=== PATIENT | female | born 1985 | race Caucasian/White ===

== ENCOUNTER 2017-02-22 18:01 | Emergency (ER) | payer MEDICAID, OTHER ==
[2017-02-22] MEDS ORDERED: HYDROCODONE/ACETAMINOPHEN 5-325 MG TABLET PO ONE (18:24)
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
--- NOTE | 2017-02-22 19:31 | RADIOLOGY REPORT (SQ) ---
EXAM DESCRIPTION: ANKLE LEFT COMPLETE COMPLETED DATE/TIME: 02/22/2017 7:05 pm REASON FOR STUDY: injury COMPARISON: None. NUMBER OF VIEWS: Three views. TECHNIQUE: AP, lateral, and oblique radiographic images acquired of the left ankle. LIMITATIONS: None. FINDINGS: MINERALIZATION: Normal. BONES: No acute fracture or dislocation. No worrisome bone lesions. JOINTS: No effusions. SOFT TISSUES: Mild diffuse soft tissue swelling. OTHER: No other significant finding. IMPRESSION: SOFT TISSUE SWELLING WITHOUT FRACTURE IDENTIFIED. TECHNICAL DOCUMENTATION: JOB ID: [id number] [employer]- All Rights Reserved
[2017-02-22 19:46] VITALS: BP 96/50
--- NOTE | 2017-02-22 19:58 | ER Document Report ---
Doctor's Note Notes: 02/22/17 19:57 zak wrap applied to left ankle by DIRECTOR OF ACCREDITATION. Neurovascular and sensation intact prior to and post application. Alignment good.
== END 2017-02-22 19:46 | disposition home or self-care (01) ==
LOC: ER 18:01
DX: S93.492A Sprain of other ligament of left ankle, initial encounter (principal); W01.0XXA Fall on same level from slipping, tripping and stumbling without subsequent striking against object, initial encounter; Y93.K1 Activity, walking an animal; F17.210 Nicotine dependence, cigarettes, uncomplicated
CPT/HCPCS: 99283

== ENCOUNTER 2017-04-06 14:18 | Emergency (ER) | payer OTHER, MEDICAID ==
[2017-04-06 14:28] VITALS: BP 111/62
[2017-04-06] MEDS ORDERED: ACETAMINOPHEN 325 MG TABLET PO ONE (14:38)
--- NOTE | 2017-04-06 14:41 | ER Document Report ---
HPI - HPI Patient complains to provider of: arm injury Onset: Just prior to arrival Onset/Duration: Sudden Quality of pain: Sharp Pain Level: 5 Context: Pt states that she slipped and fell hitting her right forearm on a bunk. Patient complains of distal forearm pain. Associated Symptoms: Other - r wrist pain Exacerbated by: Movement Relieved by: Denies Similar symptoms previously: No Recently seen / treated by doctor: No - ROS ROS below otherwise negative: Yes Systems Reviewed and Negative: Yes All other systems reviewed and negative - CONSTITUTIONAL Constitutional: DENIES: Fever, Chills - GASTROINTESTINAL Gastrointestinal: DENIES: Nausea - REPRODUCTIVE Reproductive: DENIES: : - MUSCULOSKELETAL Musculoskeletal: REPORTS: Extremity pain, Swelling - DERM Skin Color: Ecchymosis Skin Problems: None Past Medical History - General Information source: Patient - Social History Smoking Status: Current Every Day Smoker Frequency of alcohol use: None Drug Abuse: None Family History: Reviewed & Not Pertinent - Past Medical History Cardiac Medical History: Denies: Hx Heart Attack, Hx Hypertension Pulmonary Medical History: Denies: Hx Asthma, Hx Bronchitis, Hx COPD, Hx Pneumonia Neurological Medical History: Reports: Hx Seizures Renal/ Medical History: Denies: Hx Peritoneal Dialysis Musculoskeltal Medical History: Denies Hx Arthritis Psychiatric Medical History: Reports: Hx Anxiety, Hx Depression Infectious Medical History: Reports: Other - meningitits, epidural abscess Past Surgical History: Reports: Hx Appendectomy, Hx Cardiac Surgery - Ablation for SVT, Hx Section, Hx Neurologic Surgery - Immunizations Hx Diphtheria, Pertussis, Tetanus Vaccination: No Vertical Provider Document - CONSTITUTIONAL Agree With Documented VS: Yes Exam Limitations: No Limitations General Appearance: WD/WN - INFECTION CONTROL TRAVEL OUTSIDE OF THE [place] IN LAST 30 DAYS: No - HEENT HEENT: Atraumatic, Normocephalic - NECK Neck: Normal Inspection - RESPIRATORY Respiratory: No Respiratory Distress O2 Sat by Pulse Oximetry: 97 - CARDIOVASCULAR Pulses: Normal: Radial - MUSCULOSKELETAL/EXTREMETIES Musculoskeletal/Extremeties: MAEW, Tender - Numbness to distal third of the right forearm along the ulnar aspect with overlying edema and ecchymosis - NEURO Level of Consciousness: Awake, Alert, Appropriate Motor/Sensory: No Motor Deficit - DERM Integumentary: Warm, Dry, No Rash Course - Vital Signs Vital signs: Temp Pulse Resp BP Pulse Ox 98.7 F 71 18 111/62 97 04/06/17 14:27 04/06/17 14:27 04/06/17 14:27 04/06/17 14:27 04/06/17 14:27 - Diagnostic Test Radiology reviewed: Pending, Image reviewed Discharge - Discharge Clinical Impression: Forearm contusion Qualifiers: Encounter type: initial encounter Laterality: right Qualified Code(s): S50.11XA - Contusion of right forearm, initial encounter Condition: Stable Disposition: HOME, SELF-CARE Instructions: Contusion ([facility]), Ice & Elevation ([facility]), Acetaminophen Additional Instructions: Return immediately for any new or worsening symptoms Followup with orthopedic doctor for any continued pain or problems Prescriptions: Acetaminophen [Non-Aspirin Pain Relief] 1,000 mg PO Q6 PRN #20 tablet PRN Reason: Referrals: [facility] [Provider Group] - Follow up as needed
--- NOTE | 2017-04-06 15:07 | RADIOLOGY REPORT (SQ) ---
EXAM DESCRIPTION: FOREARM RIGHT COMPLETED DATE/TIME: 04/06/2017 2:52 pm REASON FOR STUDY: fall, arm injury COMPARISON: None. NUMBER OF VIEWS: Two views. TECHNIQUE: Two radiographic images acquired of the right forearm, including elbow and wrist in at le ast one projection. LIMITATIONS: None. FINDINGS: MINERALIZATION: Normal. BONES: No acute fracture. No worrisome bone lesions. SOFT TISSUES: No obvious swelling or foreign body. OTHER: No other significant finding. IMPRESSION: NEGATIVE STUDY OF THE RIGHT FOREARM. NO RADIOGRAPHIC EVIDENCE OF ACUTE INJURY. TECHNICAL DOCUMENTATION: JOB ID: [id number] [employer]- All Rights Reserved
== END 2017-04-06 14:55 | disposition home or self-care (01) ==
LOC: ER 14:18
DX: S50.11XA Contusion of right forearm, initial encounter (principal); W01.190A Fall on same level from slipping, tripping and stumbling with subsequent striking against furniture, initial encounter; Y92.143 Cell of prison as the place of occurrence of the external cause; R20.0 Anesthesia of skin; F17.200 Nicotine dependence, unspecified, uncomplicated
CPT/HCPCS: 99283

== ENCOUNTER 2017-08-25 04:36 | Emergency (ER) | payer MEDICAID ==
--- NOTE | 2017-08-25 05:17 | ER Document Report ---
HPI - HPI Patient complains to provider of: swelling to jaw Onset: This morning - woke up with the swelling Quality of pain: Throbbing Pain Level: 5 Context: 32-year-old female cracked second molar lower right several days ago woke up early this morning with swelling to her lower jaw. Hurts to move or open her mouth. She is crying and will not let me examine inside her mouth due to pain. No difficulty swallowing, no drooling. Associated Symptoms: None Exacerbated by: Movement Relieved by: Denies Similar symptoms previously: No Recently seen / treated by doctor: No - ROS ROS below otherwise negative: Yes Systems Reviewed and Negative: Yes All other systems reviewed and negative - REPRODUCTIVE Reproductive: DENIES: : Past Medical History - General Information source: Patient - Social History Smoking Status: Current Every Day Smoker Frequency of alcohol use: None Drug Abuse: None Lives with: Spouse/Significant other Family History: Reviewed & Not Pertinent - Medical History Medical History: Negative Neurological Medical History: Reports: Hx Seizures Renal/ Medical History: Denies: Hx Peritoneal Dialysis Psychiatric Medical History: Reports: Hx Anxiety, Hx Depression Past Surgical History: Reports: Hx Appendectomy, Hx Cardiac Surgery - Ablation for SVT, Hx Section, Hx Neurologic Surgery - Immunizations Hx Diphtheria, Pertussis, Tetanus Vaccination: No Vertical Provider Document - CONSTITUTIONAL Agree With Documented VS: Yes Exam Limitations: No Limitations General Appearance: Mild Distress - INFECTION CONTROL TRAVEL OUTSIDE OF THE [place] IN LAST 30 DAYS: No - HEENT HEENT: Normocephalic Mouth Diagram: 1 - tender, gingival swelling, also has right cheek and sub mandibular swelling which is not tender. Notes: does open mouth for re exam, 1st molar lower left decayed to pulp, gingival tenderness and swelling, no swelling or tenderness under her tongue - NECK Neck: Supple. negative: Lymphadenopathy-Left, Lymphadenopathy-Right - RESPIRATORY Respiratory: Breath Sounds Normal, No Respiratory Distress O2 Sat by Pulse Oximetry: 95 - CARDIOVASCULAR Cardiovascular: Regular Rate, Regular Rhythm - MUSCULOSKELETAL/EXTREMETIES Musculoskeletal/Extremeties: MAFRANCISCO J CENTENO - NEURO Level of Consciousness: Awake, Alert, Appropriate, Agitated Course - Vital Signs Vital signs: Temp Pulse Resp BP Pulse Ox 98.7 F 90 20 128/70 H 95 08/25/17 04:48 08/25/17 04:48 08/25/17 04:48 08/25/17 04:48 08/25/17 04:48 Discharge - Discharge Clinical Impression: Dental abscess, Jaw swelling Condition: Good Disposition: HOME, SELF-CARE Instructions: Clindamycin (OM), Dentist, Dental Infection or Abscess ([facility]), Steroid Medication, Toradol Injection ([facility]), Warm Packs ([facility]) Additional Instructions: see the dentist next week heat to jaw take the antibiotics as prescribed to er if worse Prescriptions: Ibuprofen [Motrin 800 mg Tablet] 800 mg PO Q8HP PRN #30 tablet PRN Reason: Clindamycin HCl [Cleocin 150 mg Capsule] 300 mg PO TID #42 capsule Referrals: TASHA PEOPLES MD [Primary Care Provider] - Follow up as needed
[2017-08-25] MEDS ORDERED: CLINDAMYCIN 600 MG/D5W RTU 600 MG/50 ML RTUPB IV ONE (05:21)
[2017-08-25] MEDS ORDERED: NORMAL SALINE 1000 ML 1,000 ML IV ONE (05:21)
[2017-08-25] MEDS ORDERED: DEXAMETHASONE SOD PHOS INJ 10 MG/1 ML VIAL IV ONE (05:21)
[2017-08-25] MEDS ORDERED: ACETAMINOPHEN SUSP 160 MG/5 ML ORAL SYRING PO ONE (05:22)
[2017-08-25] MEDS ORDERED: KETOROLAC TROMETHAMINE INJ/PF 30 MG/1 ML SDV IV ONE (05:25)
[2017-08-25] MEDS ORDERED: MORPHINE SULFATE 10 MG/ML INJ IV ONE (06:31)
[2017-08-25 08:40] VITALS: BP 92/58
== END 2017-08-25 08:40 | disposition home or self-care (01) ==
LOC: ER 04:36
DX: K04.7 Periapical abscess without sinus (principal); F17.200 Nicotine dependence, unspecified, uncomplicated
CPT/HCPCS: 99283; 96375; 96365; S0077; J1885; J2270; J7030; J1100

== ENCOUNTER 2017-11-30 22:10 | Emergency (ER) | payer MEDICAID ==
[2017-11-30] MEDS ORDERED: NORMAL SALINE 1000 ML 1,000 ML IV ONE (22:48)
[2017-11-30 22:53] LABS: AMORPHOUS SEDIMENT,URINE TRACE /HPF; APPEARANCE,URINE SLIGHTLY-CLOUDY; BILIRUBIN,URINE NEGATIVE (NEGATIVE); COLOR,URINE YELLOW; GLUCOSE, URINE NEGATIVE (NEGATIVE); KETONES,URINE NEGATIVE (NEGATIVE); LEUKOCYTE ESTERASE,URINE TRACE (NEGATIVE); NITRITE,URINE NEGATIVE (NEGATIVE); PROTEIN,URINE NEGATIVE (NEGATIVE); URINE SPECIFIC GRAVITY 1.006; UROBILINOGEN,URINE NEGATIVE mg/dL (<2.0)
[2017-11-30 23:26] LABS: HEMATOCRIT 33.3 % (36.0-47.0); HEMOGLOBIN 11.2 g/dL (12.0-15.5); MEAN CORPUSCULAR HEMOGLOBIN 26.4 pg (27.0-33.4); MEAN CORPUSCULAR HGB CONC 33.8 g/dL (32.0-36.0); MEAN CORPUSCULAR VOLUME 78 fl (80-97); PLATELET COUNT 118 10^3/uL (150-450); RED BLOOD COUNT 4.26 10^6/uL (3.72-5.28); RED CELL DISTRIBUTION WIDTH 15.4 % (11.5-14.0); WHITE BLOOD COUNT 6.7 10^3/uL (4.0-10.5)
--- NOTE | 2017-11-30 23:28 | ER Document Report ---
ED General - General Chief Complaint: Vag Bleeding, +preg <12wks Stated Complaint: VAGINAL BLEEDING/CRAMPING Time Seen by Provider: 11/30/17 22:39 Mode of Arrival: Ambulatory Information source: Patient, Parent, Relative TRAVEL OUTSIDE OF THE [place] IN LAST 30 DAYS: No - HPI Patient complains to provider of: Pelvic cramping with brownish vaginal discharge Onset: Just prior to arrival Quality of pain: Cramping Severity: Mild Associated symptoms: Body/muscle aches Exacerbated by: Movement Relieved by: Denies Similar symptoms previously: No Recently seen / treated by doctor: Yes - Patient diagnosed with flu yesterday and started on Tamiflu Notes: 32-year-old female 2 para 1000. Patient states her child 8 years ago at 1 month of age due to SIDS. 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 Patient is on Lamictal gabapentin her last seizure was last year.Patient states she is 12-1/2 weeks . She did have an ultrasound last Saturday which showed her at 11 week's and 5 days. Patient goes to [facility] as well as [facility] in [place] secondary to her seizure history. Patient is also on Subutex and Fioricet. She discontinued her Ativan a few days ago.Patient states that she was sleeping and awoke prior to arrival to the emergency department with cramping and scant bleeding. - Related Data Allergies/Adverse Reactions: Sulfa (Sulfonamide Antibiotics) Allergy (Severe, Verified 08/25/17 04:50) RASH, HIVES latex [Latex] Allergy (Intermediate, Verified 08/25/17 04:50) RASH, SWELLING AT AREA ketorolac tromethamine [From Toradol] Adverse Reaction (Intermediate, Verified 08/25/17 04:50) AGITATED meperidine HCl [From Demerol] Adverse Reaction (Intermediate, Verified 08/25/17 04:50) AGITATED Past Medical History - General Information source: Patient, Parent, [facility] Records - Social History Smoking Status: Former Smoker Frequency of alcohol use: None Lives with: Family Family History: Reviewed & Not Pertinent, Other - sister had placental abruption Patient has suicidal ideation: No Patient has homicidal ideation: No - Past Medical History Cardiac Medical History: Reports: None Denies: Hx Heart Attack, Hx Hypertension Pulmonary Medical History: Reports: None Denies: Hx Asthma, Hx Bronchitis, Hx COPD, Hx Pneumonia EENT Medical History: Reports: None Neurological Medical History: Reports: Hx Seizures Endocrine Medical History: Reports: None Renal/ Medical History: Reports: None. Denies: Hx Peritoneal Dialysis Malignancy Medical History: Reports: None GI Medical History: Reports: None Musculoskeltal Medical History: Reports None, Denies Hx Arthritis Psychiatric Medical History: Reports: Hx Anxiety, Hx Depression Traumatic Medical History: Reports: None Past Surgical History: Reports: Hx Appendectomy, Hx Cardiac Surgery - Ablation for SVT, Hx Section, Hx Neurologic Surgery - Immunizations Hx Diphtheria, Pertussis, Tetanus Vaccination: No Review of Systems - Review of Systems Constitutional: See HPI EENT: No symptoms reported Cardiovascular: No symptoms reported Respiratory: No symptoms reported Gastrointestinal: No symptoms reported Genitourinary: No symptoms reported Female Genitourinary: See HPI Skin: No symptoms reported Hematologic/Lymphatic: No symptoms reported Neurological/Psychological: No symptoms reported Physical Exam - Vital signs Vitals: Temp Pulse Resp BP Pulse Ox 98.2 F 103 H 22 H 87/50 L 100 11/30/17 22:27 11/30/17 22:27 11/30/17 22:27 11/30/17 22:27 11/30/17 22:27 Interpretation: Normal - Notes Notes: PHYSICAL EXAMINATION: GENERAL: Well-appearing, well-nourished and in no acute distress. Anxious and teary-eyed. HEAD: Atraumatic, normocephalic. EYES: Pupils equal round and reactive to light, extraocular movements intact, conjunctiva are normal. ENT: Nares patent, oropharynx clear without exudates. Moist mucous membranes. NECK: Normal range of motion, supple without lymphadenopathy. LUNGS: Breath sounds clear to auscultation bilaterally and equal. No wheezes rales or rhonchi. HEART: Regular rate and rhythm without murmurs ABDOMEN: Soft, nontender, nondistended abdomen. No guarding, no rebound. No masses appreciated. Female : deferred Musculoskeletal: Normal range of motion, no pitting or edema. No cyanosis. NEUROLOGICAL: Cranial nerves grossly intact. Normal speech. Normal sensory, motor exams. PSYCH: Normal mood, normal affect. SKIN: Warm, dry, normal turgor, no rashes or lesions noted. Course - Re-evaluation Re-evalutation: 12/01/17 00:20 U/S tech stated she did not see heart beat. Awaiting official reading. Called to radiology and Dr. Arango to read. Called chemistry and awaiting HCG dilution. 12/01/17 00:[address] Kellie García. He states that the patient follow-up on Saturday.I did go in and tell the patient including her parents and significant other the results of the ultrasound. I told her to return to the emergency department if she has high fevers, increased abdominal pain, vaginal bleeding, fainting or any other concerns. 12/01/17 00:44 Labs- All tests 24 hr 11/30/17 11/30/17 11/30/17 22:30 23:03 23:03 WBC 6.7 RBC 4.26 Hgb 11.2 L Hct 33.3 L MCV 78 L MCH 26.4 L MCHC 33.8 RDW 15.4 H Plt Count 118 L Total Counted 100 Seg Neutrophils % Not Reportable Seg Neuts % (Manual) 75 Band Neutrophils % 23 H Lymphocytes % Not Reportable Lymphocytes % (Manual) 1 L Monocytes % Not Reportable Monocytes % (Manual) 1 L Eosinophils % Not Reportable Eosinophils % (Manual) 0 Basophils % Not Reportable Basophils % (Manual) 0 Absolute Neutrophils Not Reportable Abs Neuts (Manual) 6.6 Absolute Lymphocytes Not Reportable Abs Lymphs (Manual) 0.1 L Absolute Monocytes Not Reportable Abs Monocytes (Manual) 0.1 Absolute Eosinophils Not Reportable Absolute Eos (Manual) 0.0 Absolute Basophils Not Reportable Abs Basophils (Manual) 0.0 Toxic Granulation 1+ Toxic Vacuolation PRESENT Dohle Bodies PRESENT Large Platelets PRESENT Platelet Comment DECREASED Polychromasia SLIGHT Hypochromasia SLIGHT Anisocytosis SLIGHT Sodium 132.4 L Potassium 3.7 Chloride 96 L Carbon Dioxide 26 Anion Gap 10 BUN 19 Creatinine 0.71 Est GFR ( Amer) > 60 Est GFR (Non-Af Amer) > 60 Glucose 111 H Calcium 8.4 Total Bilirubin 0.3 Direct Bilirubin 0.1 Neonat Total Bilirubin Not Reportable Neonat Direct Bilirubin Not Reportable Neonat Indirect Bili Not Reportable AST 46 H ALT 44 Alkaline Phosphatase 76 Total Protein 6.6 Albumin 3.6 Beta HCG, Quant 45065.00 H Total Beta HCG POSITIVE Urine Color YELLOW Urine Appearance SLIGHTLY-CLOUDY Urine pH 8.0 Ur Specific [place] 1.006 Urine Protein NEGATIVE Urine Glucose (UA) NEGATIVE Urine Ketones NEGATIVE Urine Blood LARGE H Urine Nitrite NEGATIVE Urine Bilirubin NEGATIVE Urine Urobilinogen NEGATIVE Ur Leukocyte Esterase TRACE H Urine WBC (Auto) 23 Urine RBC (Auto) 6 Urine Bacteria (Auto) 3+ Squamous Epi Cells Auto 7 Amorphous Sediment Auto TRACE Urine Mucus (Auto) RARE Urine Ascorbic Acid NEGATIVE Blood Type Rhogam Indicated 11/30/17 23:03 WBC RBC Hgb Hct MCV MCH MCHC RDW Plt Count Total Counted Seg Neutrophils % Seg Neuts % (Manual) Band Neutrophils % Lymphocytes % Lymphocytes % (Manual) Monocytes % Monocytes % (Manual) Eosinophils % Eosinophils % (Manual) Basophils % Basophils % (Manual) Absolute Neutrophils Abs Neuts (Manual) Absolute Lymphocytes Abs Lymphs (Manual) Absolute Monocytes Abs Monocytes (Manual) Absolute Eosinophils Absolute Eos (Manual) Absolute Basophils Abs Basophils (Manual) Toxic Granulation Toxic Vacuolation Dohle Bodies Large Platelets Platelet Comment Polychromasia Hypochromasia Anisocytosis Sodium Potassium Chloride Carbon Dioxide Anion Gap BUN Creatinine Est GFR ( Amer) Est GFR (Non-Af Amer) Glucose Calcium Total Bilirubin Direct Bilirubin Neonat Total Bilirubin Neonat Direct Bilirubin Neonat Indirect Bili AST ALT Alkaline Phosphatase Total Protein Albumin Beta HCG, Quant Total Beta HCG Urine Color Urine Appearance Urine pH Ur Specific [place] Urine Protein Urine Glucose (UA) Urine Ketones Urine Blood Urine Nitrite Urine Bilirubin Urine Urobilinogen Ur Leukocyte Esterase Urine WBC (Auto) Urine RBC (Auto) Urine Bacteria (Auto) Squamous Epi Cells Auto Amorphous Sediment Auto Urine Mucus (Auto) Urine Ascorbic Acid Blood Type A POSITIVE Rhogam Indicated RHOGAM NOT INDICATED Transvaginal US 11/30/17 22:40 IMPRESSION: demise pattern. Serial laboratory/sonographic confirmation advised, as clinically warranted. - Vital Signs Vital signs: Temp Pulse Resp BP Pulse Ox 98.1 F 73 18 102/50 L 100 12/01/17 00:06 12/01/17 00:06 12/01/17 00:06 12/01/17 00:06 12/01/17 00:06 - Laboratory Result Diagrams: 11/30/17 23:03 11/30/17 23:03 Laboratory results interpreted by me: 03/03/18 03/03/18 03/03/18 22:30 23:03 23:03 Hgb 11.2 L Hct 33.3 L MCV 78 L MCH 26.4 L RDW 15.4 H Plt Count 118 L Band Neutrophils % 23 H Lymphocytes % (Manual) 1 L Monocytes % (Manual) 1 L Abs Lymphs (Manual) 0.1 L Sodium 132.4 L Chloride 96 L Glucose 111 H AST 46 H Beta HCG, Quant 05638.00 H Urine Blood LARGE H Ur Leukocyte Esterase TRACE H Discharge - Discharge Clinical Impression: Intrauterine before 20 weeks of gestation Condition: Stable Disposition: HOME, SELF-CARE Additional Instructions: Follow up with your physician Saturday for further care or return to the ED IMMEDIATELY if symptoms worsen or new concerns occur including but not limited to increased abdominal pain, vomiting, increased vaginal bleeding, fainting. Referrals: KELLIE GARCÍA MD [[facility]] - Follow up tomorrow (Call your OB office in am on Saturday for follow up)
[2017-11-30 23:32] LABS: ALANINE AMINOTRANSFERASE 44 U/L (9-52); ALBUMIN 3.6 g/dL (3.5-5.0); ALKALINE PHOSPHATASE 76 U/L (38-126); ANION GAP 10 (5-19); ASPARTATE AMINO TRANSFERASE 46 U/L (14-36); BILIRUBIN,DIRECT 0.1 mg/dL (0.0-0.4); BILIRUBIN,TOTAL 0.3 mg/dL (0.2-1.3); BLOOD UREA NITROGEN 19 mg/dL (7-20); CALCIUM 8.4 mg/dL (8.4-10.2); CARBON DIOXIDE 26 mmol/L (22-30); CHLORIDE 96 mmol/L (98-107); GLUCOSE 111 mg/dL (75-110); POTASSIUM 3.7 mmol/L (3.6-5.0); SODIUM 132.4 mmol/L (137-145); TOTAL PROTEIN 6.6 g/dL (6.3-8.2)
[2017-11-30 23:47] LABS: ABSOLUTE LYMPHOCYTES# (MANUAL) 0.1 10^3/uL (0.5-4.7); ABSOLUTE MONOCYTES # (MANUAL) 0.1 10^3/uL (0.1-1.4); ABSOLUTE NEUTROPHILS# (MANUAL) 6.6 10^3/uL (1.7-8.2); BASOPHILS % (MANUAL) 0 % (0-2); EOSINOPHILS % (MANUAL) 0 % (0-6); LYMPHOCYTES % (MANUAL) 1 % (13-45); MONOCYTES % (MANUAL) 1 % (3-13); SEGMENTED NEUTROPHILS % (MAN) 75 % (42-78); TOTAL CELLS COUNTED 100
[2017-11-30 23:49] LABS: PLATELET COMMENT DECREASED; TOXIC GRANULATION 1+; TOXIC VACUOLATION PRESENT
[2017-11-30 23:53] LABS: PLATELET LARGE PRESENT
[2017-11-30 23:54] LABS: ANISOCYTOSIS SLIGHT; HYPOCHROMASIA SLIGHT; POLYCHROMASIA SLIGHT
[2017-11-30 23:55] LABS: BAND NEUTROPHILS % (MANUAL) 23 % (3-5)
[2017-12-01] MEDS ORDERED: NORMAL SALINE 1000 ML 1,000 ML IV ONE (00:20)
--- NOTE | 2017-12-01 00:28 | RADIOLOGY REPORT (SQ) ---
EXAM DESCRIPTION: U/S OB TRANSVAG W/DOPPLER CLINICAL HISTORY: 32 years, Female, vag bleeding COMPARISON: None. TECHNIQUE: Transvaginal. LIMITATIONS: None. FINDINGS: demise pattern includes an intrauterine fetus measuring 5.0-cm in crown-rump length which would correspond with a gestational age of 11w5d if viable. No cardiac activity is identified. No yolk sac discerned. Cervical length is 2.3 cm with funneling. IMPRESSION: demise pattern. Serial laboratory/sonographic confirmation advised, as clinically warranted.
[2017-12-01 00:49] VITALS: BP 123/65
[2017-12-02 14:13] LABS: PATH REVIEW PATHOLOGIST REVIEWED
== END 2017-12-01 00:47 | disposition home or self-care (01) ==
LOC: ER 22:10
DX: O02.1 Missed abortion (principal); M79.1 Myalgia; Z3A.12 12 weeks gestation of pregnancy; Z88.2 Allergy status to sulfonamides; Z91.040 Latex allergy status
CPT/HCPCS: 99284; 86900; 86901; 36415; 87086; 84702; 85025; 87088; 80053; 81001; 87186; 76817; 93976; J7030

== ENCOUNTER 2017-12-02 06:13 | Observation (INO) | payer MEDICAID ==
[2017-12-02] MEDS ORDERED: NORMAL SALINE 1000 ML 1,000 ML IV ONE ×2 (06:21→08:57)
[2017-12-02 06:45] LABS: HEMATOCRIT 26.6 % (36.0-47.0); MEAN CORPUSCULAR HEMOGLOBIN 26.7 pg (27.0-33.4); MEAN CORPUSCULAR HGB CONC 34.2 g/dL (32.0-36.0); MEAN CORPUSCULAR VOLUME 78 fl (80-97); PLATELET COUNT 138 10^3/uL (150-450); RED CELL DISTRIBUTION WIDTH 15.7 % (11.5-14.0); WHITE BLOOD COUNT 6.9 10^3/uL (4.0-10.5)
[2017-12-02] MEDS ORDERED: FENTANYL CITRATE INJ/PF 100 MCG/2 ML AMPUL IV ONE ×2 (06:46→09:41)
[2017-12-02 06:51] LABS: ALANINE AMINOTRANSFERASE 37 U/L (9-52); ALBUMIN 3.2 g/dL (3.5-5.0); ALKALINE PHOSPHATASE 103 U/L (38-126); ANION GAP 10 (5-19); ASPARTATE AMINO TRANSFERASE 37 U/L (14-36); BLOOD UREA NITROGEN 14 mg/dL (7-20); CALCIUM 8.1 mg/dL (8.4-10.2); CARBON DIOXIDE 23 mmol/L (22-30); CHLORIDE 98 mmol/L (98-107); GLUCOSE 99 mg/dL (75-110); POTASSIUM 3.4 mmol/L (3.6-5.0); TOTAL PROTEIN 6.2 g/dL (6.3-8.2)
[2017-12-02 06:53] LABS: BILIRUBIN,TOTAL < 0.1 mg/dL (0.2-1.3)
--- NOTE | 2017-12-02 07:10 | ER Document Report ---
ED General - General Chief Complaint: Vaginal Bleeding Stated Complaint: VAGINAL BLEED Time Seen by Provider: 12/02/17 06:19 Mode of Arrival: Ambulatory Information source: Patient, [facility] Records Notes: 32-year-old female 2 para 1 history of placenta previa presents with complaints of vaginal bleeding. Patient was seen here 2 days prior was noted to have a 12 week demise, patient has been passing large clots has been having abdominal cramping. Patient admits to generalized body aches feels all her muscles are tender Patient was diagnosed with influenza and start Tamiflu 2 days prior TRAVEL OUTSIDE OF THE [place] IN LAST 30 DAYS: No - HPI Onset: Other Onset/Duration: Intermittent, Waxing and waning Quality of pain: Sharp Severity: Mild Pain Level: 2 Associated symptoms: Body/muscle aches, Other Exacerbated by: Denies Relieved by: Denies Similar symptoms previously: Yes Recently seen / treated by doctor: Yes - Related Data Allergies/Adverse Reactions: Sulfa (Sulfonamide Antibiotics) Allergy (Severe, Verified 12/02/17 10:43) RASH, HIVES latex [Latex] Allergy (Intermediate, Verified 12/02/17 10:43) RASH, SWELLING AT AREA ketorolac tromethamine [From Toradol] Adverse Reaction (Intermediate, Verified 12/02/17 10:43) AGITATED meperidine HCl [From Demerol] Adverse Reaction (Intermediate, Verified 12/02/17 10:43) AGITATED Past Medical History - Social History Smoking Status: Current Every Day Smoker Cigarette use (# per day): Yes Chew tobacco use (# tins/day): No Smoking Education Provided: No Drug Abuse: Prescription drugs, Other Family History: Reviewed & Not Pertinent, Other - sister had placental abruption Patient has suicidal ideation: No Patient has homicidal ideation: No - Past Medical History Cardiac Medical History: Denies: Hx Heart Attack, Hx Hypertension Pulmonary Medical History: Denies: Hx Asthma, Hx Bronchitis, Hx COPD, Hx Pneumonia Neurological Medical History: Reports: Hx Seizures Renal/ Medical History: Denies: Hx Peritoneal Dialysis Musculoskeltal Medical History: Denies Hx Arthritis Psychiatric Medical History: Reports: Hx Anxiety, Hx Depression Past Surgical History: Reports: Hx Appendectomy, Hx Cardiac Surgery - Ablation for SVT, Hx Section, Hx Neurologic Surgery - Immunizations Hx Diphtheria, Pertussis, Tetanus Vaccination: No Review of Systems - Review of Systems Notes: REVIEW OF SYSTEMS: CONSTITUTIONAL : Denies fever, chills, or sweats. Denies recent illness. EENT: Denies eye, ear, throat, or mouth pain or symptoms. Denies nasal or sinus congestion or discharge. Denies throat, tongue, or mouth swelling or difficulty swallowing. CARDIOVASCULAR: Denies chest pain. Denies palpitations or racing or irregular heart beat. Denies ankle edema. RESPIRATORY: Denies cough, cold, or chest congestion. Denies shortness of breath, difficulty breathing, or wheezing. GASTROINTESTINAL: Denies abdominal pain or distention. Denies nausea, vomiting , or diarrhea. Denies blood in vomitus, stools, or per rectum. Denies black, tarry stools. Denies constipation. GENITOURINARY: Denies difficulty urinating, painful urination, burning, frequency, blood in urine, or discharge. FEMALE GENITOURINARY: Admits to vaginal bleeding MUSCULOSKELETAL: Admits to generalized body aches admits to leg pain states she cannot move her legs or her arm SKIN: Denies rash, lesions or sores. HEMATOLOGIC : Denies easy bruising or bleeding. LYMPHATIC: Denies swollen, enlarged glands. NEUROLOGICAL: Denies confusion or altered mental status. Denies passing out or loss of consciousness. Denies dizziness or lightheadedness. Denies headache. Denies weakness or paralysis or loss of use of either side. Denies problems with gait or speech. Denies sensory loss, numbness, or tingling. Denies seizures. PSYCHIATRIC: Anxious ALL OTHER SYSTEMS REVIEWED AND NEGATIVE. PHYSICAL EXAMINATION: GENERAL: Well-appearing, well-nourished and in mild distress secondary to cramping pain HEAD: Atraumatic, normocephalic. EYES: Pupils equal round and reactive to light, extraocular movements intact, conjunctiva are normal. ENT: Nares patent, oropharynx clear without exudates. Moist mucous membranes. NECK: Normal range of motion, supple without lymphadenopathy LUNGS: Breath sounds clear to auscultation bilaterally and equal. No wheezes rales or rhonchi. HEART: Regular rate and rhythm without murmurs ABDOMEN: Soft, nontender, nondistended abdomen. No guarding, no rebound. No masses appreciated. Female : deferred Musculoskeletal: Normal range of motion, no pitting or edema. No cyanosis. Patient is able to walk, is able to lift her legs with no difficulty when distracted NEUROLOGICAL: Cranial nerves grossly intact. Normal speech, normal gait. Normal sensory, motor exams PSYCH: Normal mood, normal affect. SKIN: Warm, Dry, normal turgor, no rashes or lesions noted. Dictation was performed using [employer] voice recognition software Physical Exam - Vital signs Vitals: Temp Pulse Resp BP Pulse Ox 99.1 F 102 H 20 104/57 L 98 12/02/17 06:19 12/02/17 06:19 12/02/17 06:19 12/02/17 06:19 12/02/17 06:19 Course - Re-evaluation Re-evalutation: 12/02/17 07:09 Patient has full range of motion of her extremities, she overall looks well but appears to be having pain from the miscarriage, lab work is pending, patient has already been given IV pain medication by EMS and will be given another dose here, 12/02/17 08:39 dr singh paged for evaluation 12/02/17 09:[address] Singh he will admit for a D&C 12/02/17 11:11 Patient has been able to ambulate has been able to move her legs, I am awaiting for her to go to have her D&C performed - Vital Signs Vital signs: Temp Pulse Resp BP Pulse Ox 99.1 F 102 H 15 106/56 L 100 12/02/17 06:19 12/02/17 06:19 12/02/17 10:06 12/02/17 10:06 12/02/17 10:00 - Laboratory Result Diagrams: 12/02/17 06:25 12/02/17 06:25 Laboratory results interpreted by me: 12/02/17 12/02/17 06:25 06:25 RBC 3.40 L Hgb 9.1 L D Hct 26.6 L MCV 78 L MCH 26.7 L RDW 15.7 H Plt Count 138 L Seg Neuts % (Manual) 83 H Band Neutrophils % 7 H Lymphocytes % (Manual) 4 L Abs Lymphs (Manual) 0.3 L Sodium 131.0 L Potassium 3.4 L Calcium 8.1 L Total Bilirubin < 0.1 L AST 37 H Total Protein 6.2 L Albumin 3.2 L Discharge - Discharge Clinical Impression: Intrauterine before 20 weeks of gestation, Acute blood loss anemia Condition: Fair Disposition: ADMITTED INPATIENT Admitting Provider: [facility] Admitted: OR
[2017-12-02 08:07] LABS: HEMOGLOBIN 9.1 g/dL (12.0-15.5)
[2017-12-02 08:10] LABS: ABSOLUTE LYMPHOCYTES# (MANUAL) 0.3 10^3/uL (0.5-4.7); ABSOLUTE MONOCYTES # (MANUAL) 0.3 10^3/uL (0.1-1.4); ABSOLUTE NEUTROPHILS# (MANUAL) 6.2 10^3/uL (1.7-8.2); ANISOCYTOSIS SLIGHT; BAND NEUTROPHILS % (MANUAL) 7 % (3-5); BASOPHILS % (MANUAL) 0 % (0-2); EOSINOPHILS % (MANUAL) 1 % (0-6); LYMPHOCYTES % (MANUAL) 4 % (13-45); MONOCYTES % (MANUAL) 5 % (3-13); PLATELET COMMENT DECREASED; POLYCHROMASIA SLIGHT; SEGMENTED NEUTROPHILS % (MAN) 83 % (42-78); TOTAL CELLS COUNTED 100; TOXIC GRANULATION SLIGHT
--- NOTE | 2017-12-02 08:25 | RADIOLOGY REPORT (SQ) ---
EXAM DESCRIPTION: U/S OB TRANSVAGINAL W/O DOP COMPLETED DATE/TIME: 12/02/2017 8:06 am REASON FOR STUDY: demise 12 weeks COMPARISON: 11/30/2017. TECHNIQUE: Transabdominal and endovaginal static and realtime grayscale images acquired of the pelvi s. Additional selected spectral and color Doppler images recorded. All images stored on PACs. BHCG: Not provided. LIMITATIONS: None. FINDINGS: UTERUS: Heterogeneous material in the lower uterine segment without definable gestation. Admixed heterogeneous soft tissue and fluid. Endometrium at the fundus measures up to 2.5 cm. RIGHT ADNEXA: Ovary not identified. No adnexal free fluid. No adnexal masses. LEFT ADNEXA: Ovary not identified. No adnexal free fluid. No adnexal masses. FREE FLUID: None. OTHER: No other significant finding. IMPRESSION: 1. Heterogeneous material in the lower uterine segment in a patient with history of feta l demise. Consistent with in progress. TECHNICAL DOCUMENTATION: JOB ID: [id number] [employer]- All Rights Reserved Reading location - IP/workstation name: [email or web address]
[2017-12-02] MEDS ORDERED: DIAZEPAM INJ 10 MG/2 ML DISP.SYRIN IV ONE (11:05)
[2017-12-02] MEDS ORDERED: DEXAMETHASONE SOD PHOSPHATE INJ 4 MG/1 ML VIAL ONE (12:46)
[2017-12-02] MEDS ORDERED: MIDAZOLAM 2 MG/2 ML INJ ONE (12:46)
[2017-12-02] MEDS ORDERED: ONDANSETRON HCL INJ/PF 4 MG/2 ML SDV ONE (12:46)
[2017-12-02] MEDS ORDERED: FENTANYL CITRATE INJ/PF 100 MCG/2 ML AMPUL ONE ×2 (12:46→13:21)
[2017-12-02] MEDS ORDERED: PROPOFOL INJ 200 MG/20 ML VIAL IV ONE (12:47)
[2017-12-02] MEDS ORDERED: OXYTOCIN 10 UNIT/ML VIAL ONE ×2 (13:31→13:32)
[2017-12-02] MEDS ORDERED: MISOPROSTOL 0.2 MG TABLET ONE (13:33)
[2017-12-02] MEDS ORDERED: PSEUDOEPHEDRINE HCL 30 MG TABLET PO PRN (13:42)
[2017-12-02] MEDS ORDERED: DIPH/PERTUSS(ACELL)/TETANUS VAC/PF 0.5 ML SYR (>=10YO) IM PRN (13:42)
[2017-12-02] MEDS ORDERED: OXYTOCIN/NORMAL SALINE 20 UNIT/1,000 ML RTUINJ IV PRN (13:42)
[2017-12-02] MEDS ORDERED: NA PHOS,M-B/NA PHOS,DI-BA (ADULT) 133 ML ENEMA PR PRN (13:42)
[2017-12-02] MEDS ORDERED: DIPHENHYDRAMINE HCL 25 MG CAPSULE PO PRN (13:42)
[2017-12-02] MEDS ORDERED: GLYCERIN/WITCH HAZEL LEAF 1 EACH MED..PAD TP PRN (13:42)
[2017-12-02] MEDS ORDERED: ACETAMINOPHEN 650 MG SUPP.RECT PR PRN (13:42)
[2017-12-02] MEDS ORDERED: ACETAMINOPHEN WITH CODEINE #3 TABLET PO PRN ×2 (13:42)
[2017-12-02] MEDS ORDERED: MAGNESIUM HYDROXIDE SUSP 30 ML UDCUP PO PRN (13:42)
[2017-12-02] MEDS ORDERED: HYDROCODONE/ACETAMINOPHEN 5-325 MG TABLET PO PRN (13:42)
[2017-12-02] MEDS ORDERED: PROMETHAZINE HCL 25 MG TABLET PO PRN (13:42)
[2017-12-02] MEDS ORDERED: PROMETHAZINE HCL 25 MG SUPP.RECT PR PRN (13:42)
[2017-12-02] MEDS ORDERED: MEASLES,MUMPS&RUBELLA VACC/PF 0.5 ML VIAL SUBCUT PRN (13:42)
[2017-12-02] MEDS ORDERED: PROMETHAZINE HCL INJ 25 MG/1 ML VIAL IV PRN (13:42)
[2017-12-02] MEDS ORDERED: DOXYCYCLINE HYCLATE INJ 100 MG VIAL IV ONE (13:45)
--- NOTE | 2017-12-02 13:54 | Operative Report ---
Operative Report DATE OF SURGERY: 12/02/17 PREOPERATIVE DIAGNOSIS: Incomplete AB at 12 weeks POSTOPERATIVE DIAGNOSIS: Same OPERATION: Suction D&C SURGEON: ANA HARMAN ANESTHESIA: GA TISSUE REMOVED OR ALTERED: Uterine contents COMPLICATIONS: None ESTIMATED BLOOD LOSS: 250 cc INTRAOPERATIVE FINDINGS: Exam showed a dilated cervical loss which easily allowed a size 14 suction curette. There was a large amount of products of conception present. Also she appeared to have inflamed area of raised skin at both groins. It was larger at the right groin approximately 3 cm in length and 2 cm in width. PROCEDURE: Patient was taken the OR and placed in supine position. Anesthesia was induced. She was placed in dorsolithotomy position using Eliud stirrups. Her perineum and vagina were prepared and draped in sterile fashion. A weighted speculum was placed in the vagina and the anterior lip of the cervix was grasped with a ring forcep. The cervix was quite dilated a size 14 curette was then used to evacuate a large amount of uterine contents. Sound was to approximately 14 prior to and 10 cm after the D&C. After the initial evacuation of tissue a smaller curette size 10 was used to gently evacuate and explore for any further uterine contents and there were none. Also a gentle curetting was performed with a large banjo curette and no retained products were noted. She was given IV Pitocin and also rectal Cytotec. After this was given her bleeding markedly slowed. At this point all instrument instruments were removed from the vagina and she was placed back in supine position. She is brought out of anesthesia and taken recovery room in stable condition. I did examine the products of conception and there was no recognizable parts just a lot of tissue. We will send this for pathology.
[2017-12-02] MEDS ORDERED: ACETAMINOPHEN 100 ML IV ONE (14:11)
[2017-12-02] MEDS: IBUPROFEN 800 MG TABLET PO SCH ×2 (15:58→22:20)
[2017-12-02] MEDS: FERROUS SULFATE 325 MG TABLET PO SCH (17:26)
[2017-12-02] MEDS: DOCUSATE SODIUM 100 MG CAPSULE PO SCH (17:26)
[2017-12-02] MEDS: DOXYCYCLINE HYCLATE 100 MG TABLET PO SCH (22:19)
[2017-12-02] MEDS: FAMOTIDINE 20 MG TABLET PO SCH (22:19)
[2017-12-03] MEDS: IBUPROFEN 800 MG TABLET PO SCH ×3 (06:39→19:48)
--- NOTE | 2017-12-03 07:40 | PDOC DISCHARGE SUMMARY ---
General - Admit/Disc Date/PCP Admission Date/Primary Care Provider: 12/02/17 10:27 TASHA PEOPLES Discharge Date: 12/03/17 - Discharge Diagnosis (1) Acute blood loss anemia Is this a current diagnosis for this admission?: Yes (2) Intrauterine before 20 weeks of gestation Is this a current diagnosis for this admission?: Yes - Additional Information Resuscitation Status: Full Code Home Medications: Buprenorphine HCl [Subutex 8 mg Sublingual Tablet] 1 tab SL Q8 12/02/17 Butalb/Acetaminophen/Caffeine [Fioricet (50-325-40 mg) Tablet] 1 tab PO Q8HP PRN 12/02/17 Gabapentin [Neurontin 300 mg Capsule] 300 mg PO Q8 12/02/17 Lamotrigine [Lamotrigine ER] 200 mg PO QHS 12/02/17 Lorazepam [Ativan 0.5 mg Tablet] 0.5 mg PO Q12HP PRN 12/02/17 Ondansetron HCl [Zofran 4 mg Tablet] 4 mg PO Q12HP PRN 12/02/17 Oseltamivir Phosphate [Tamiflu 75 mg Capsule] 75 mg PO Q12 12/02/17 Sertraline HCl [Zoloft] 100 mg PO DAILY 12/02/17 History of Present Illness Patient complains of: Vaginal bleeding History of Present Illness: TAMARA MOJICA is a 32 year old female She is admitted through the ER with vaginal bleeding and incomplete AB of a 12 week . Hospital Course Hospital Course: She was taken to the OR and a suction curettage was done which returned a large amount of tissue. Afterwards she was having trouble with her arms and legs and was watched overnight. This morning she feels like she can go home and is no longer bleeding. She does decline the CBC this morning. Hemodynamically she is stable by vitals. Physical Exam - Physical Exam Vital Signs: Temp Pulse Resp BP Pulse Ox 98.2 F 56 L 16 99/50 L 99 12/03/17 04:00 12/03/17 04:00 12/03/17 04:00 12/03/17 04:00 12/03/17 04:00 Intake & Output 12/02/17 12/03/17 12/04/17 06:59 06:59 06:59 Intake Total 2505 Output Total 2400 Balance 105 General appearance: PRESENT: no acute distress, well-developed, well-nourished Head exam: PRESENT: atraumatic - She is lying in bed. She appears comfortable. , normocephalic Result Impressions: Obstetrics Ultrasound 12/02/17 07:00 IMPRESSION: 1. Heterogeneous material in the lower uterine segment in a patient with history of demise. Consistent with in progress. Complete miscarriage after suction D&C. Plan Discharge Plan: Plan to send her home. She has an appointment with her primary care doctor today who she sees every 2 months. Also from a previous admission she has some MRSA growing out of the urine culture. For this reason I am sending her home on doxycycline which it is sensitive to. I have asked that she follow-up in 1 week in our office. She should also begin an [id number] iron supplement. Time Spent: Greater than 30 Minutes
[2017-12-03] MEDS: FAMOTIDINE 20 MG TABLET PO SCH ×2 (09:55→21:48)
[2017-12-03] MEDS: DOCUSATE SODIUM 100 MG CAPSULE PO SCH ×3 (09:55→19:49)
[2017-12-03] MEDS: FERROUS SULFATE 325 MG TABLET PO SCH ×2 (09:56→19:47)
[2017-12-03] MEDS ORDERED: SENNOSIDES/DOCUSATE 8.6-50 MG 1 EACH TABLET PO SCH (10:00)
[2017-12-03] MEDS ORDERED: PRENATAL VITAMIN W DHA CAPSULE PO SCH (10:00)
[2017-12-03] MEDS: DOXYCYCLINE HYCLATE 100 MG TABLET PO SCH ×2 (10:00→21:47)
[2017-12-03] MEDS ORDERED: CYCLOBENZAPRINE HCL 10 MG TABLET PO ONE (12:00)
--- NOTE | 2017-12-03 12:15 | PDOC PROGRESS REPORT ---
Subjective Progress Note for:: 12/03/17 Subjective:: was called to the patient's bedside due to c/o left sided extremity weakness and paralysis. Patient and family indicate that this issue has been present since prior to her D&C and that she has been complaining of extreme pain in her arms and legs. Reason For Visit: INTRAUTERINE BEFORE 20 WEEKS Physical Exam - Physical Exam Vital Signs: Temp Pulse Resp BP Pulse Ox 98.5 F 71 16 110/54 L 100 12/03/17 11:54 12/03/17 11:54 12/03/17 11:54 12/03/17 11:54 12/03/17 11:54 Intake & Output 12/02/17 12/03/17 12/04/17 06:59 06:59 06:59 Intake Total 2505 Output Total 2400 Balance 105 General appearance: PRESENT: no acute distress, mild distress, well-developed Exam: patient emotional Head exam: PRESENT: atraumatic Eye exam: PRESENT: PERRLA, other - pupils small. No dilatation to light bilateral. (patient indicating that light hurts her eyes and therefore difficult to examine.) Mouth exam: PRESENT: moist, neck supple, tongue midline Vascular exam: PRESENT: normal capillary refill GI/Abdominal exam: PRESENT: soft Extremities exam: PRESENT: calf tenderness Musculoskeletal exam: PRESENT: normal inspection, tenderness Neurological exam: PRESENT: alert, awake, oriented to person, oriented to place , CN II-XII grossly intact, other - subjective weakness of left arm and hands. c/o pain with movement of hands for exam. c/o pain in both legs when attempting flexion. Indicating pain in calf with flexion but would not allow much movement of feet complaining she did not want to be touched. Psychiatric exam: PRESENT: agitated, anxious, depressed Result Impressions: Obstetrics Ultrasound 12/02/17 07:00 IMPRESSION: 1. Heterogeneous material in the lower uterine segment in a patient with history of demise. Consistent with in progress. Assessment & Plan - Plan Summary Plan Summary: I have asked Dr. Peters from medicine to assess the patient as I am unsure of the etiology of these complaints. I asked the patient to get coagulation panel but she and family indicate that she is "too hard to stick" and did not want labs done. I spoke with Dr. Peters who requested an MRI of the head to r/o defects or trauma.. Patient requesting a trial of muscle relaxer to see if symptoms would improve. Flexeril ordered. Pt also c/o of "tape in her left eye" since the procedure and indicating that she cannot see out of the left eye. Cipro drops already ordered and will continue.
[2017-12-03] MEDS: CIPROFLOXACIN HCL 0.3% OPH SOLN 2.5 ML OS SCH ×4 (13:59→21:03)
[2017-12-03] MEDS ORDERED: BUTALB/ACETAMINOPHEN/CAFFEINE 1 TAB EACH PO PRN (14:15)
[2017-12-03] MEDS ORDERED: LORAZEPAM 0.5 MG TABLET PO PRN (14:32)
[2017-12-03] MEDS ORDERED: (PENDING PHARMACY ID) (Ondansetron Hcl [Zofran 4 Mg Tablet] 4 MG) PO PRN (14:32)
[2017-12-03] MEDS ORDERED: POTASSIUM CHLORIDE 10 MEQ TABLET.SA PO ONE (14:34)
--- NOTE | 2017-12-03 14:39 | PDOC CONSULTATION ---
Consultation Consult Date: 12/03/17 Attending physician:: PITO DECKER Consult reason:: Difficulty moving left arm and lower extremity weakness History of Present Illness Admission Date/PCP: 12/02/17 10:27 TASHA PEOPLES Patient complains of: Difficulty moving left arm and bilateral lower extremity weakness History of Present Illness: Patient patient is a 32-year-old female that was admitted to the OB service due to incomplete at 12 weeks status post D&C. Received call from Dr. Decker due to patient complaining of left upper extremity weakness and inability to walk. Patient states that she is so weak that she is not able to transition herself from the bed to the chair. Patient's mother was present who stated that her father had a left patient up and place her in bed. Patient reports that prior to admission she had a fever of 104 prior to admission. Patient states that she went to an urgent clinic where she was placed on Tamiflu. Patient states that due to not feeling well she came to the hospital where she was found to have an incomplete at 12 weeks. Patient underwent I&D by the OB department. OB was planning to discharge patient home however patient reported that she is not able to ambulate. She reports that she has history of migraines and has not received her Fioricet. Patient states that she normally takes Fioricet daily. Patient states that her eyes are very sensitive to light and patient also states that her left eye is red due to her rubbing her eye. Patient states that she is not able to see out of her left eye which she thinks is due to her rubbing her eye. Nursing states that patient has been written for eyedrops. Patient states that prior to her admission she had difficulty ambulating however is continued to worsen. Asked patient about her migraine history and if she has had symptoms like this before and patient states that she has not had symptoms such as this. Patient's mother is present in room and became very upset when the patient stated that she was going to sign out AMA. Explained to patient the studies that were going to perform and the reason why we would need to perform those studies. Patient's mother states that patient does see a neurologist here in town however air tool operator was contacted and stated that neurologist has retired. Past Medical History Cardiac Medical History: Denies: Myocardial Infarction, Hypertension Pulmonary Medical History: Denies: Asthma, Bronchitis, Chronic Obstructive Pulmonary Disease (COPD), Pneumonia Neurological Medical History: Reports: Seizures Musculoskeltal Medical History: Denies: Arthritis Psychiatric Medical History: Reports: Depression Hematology: Reports: Anemia Past Surgical History Past Surgical History: Reports: Appendectomy, Section Social History Smoking Status: Current Every Day Smoker Frequency of Alcohol Use: None Hx Recreational Drug Use: No Drugs: None Hx Prescription Drug Abuse: No - Advance Directive Resuscitation Status: Full Code Family History Family History: Reviewed & Not Pertinent, Other - sister had placental abruption Parental Family History Reviewed: Yes Children Family History Reviewed: Yes Sibling(s) Family History Reviewed.: Yes Medication/Allergy Home Medications: Buprenorphine HCl [Subutex 8 mg Sublingual Tablet] 1 tab SL Q8 12/02/17 Butalb/Acetaminophen/Caffeine [Fioricet (50-325-40 mg) Tablet] 1 tab PO Q8HP PRN 12/02/17 Gabapentin [Neurontin 300 mg Capsule] 300 mg PO Q8 12/02/17 Lamotrigine [Lamotrigine ER] 200 mg PO QHS 12/02/17 Lorazepam [Ativan 0.5 mg Tablet] 0.5 mg PO Q12HP PRN 12/02/17 Ondansetron HCl [Zofran 4 mg Tablet] 4 mg PO Q12HP PRN 12/02/17 Oseltamivir Phosphate [Tamiflu 75 mg Capsule] 75 mg PO Q12 12/02/17 Sertraline HCl [Zoloft] 100 mg PO DAILY 12/02/17 Doxycycline Hyclate [Vibramycin 100 mg Tablet] 100 mg PO Q12 7 Days #14 tablet 12/03/17 Allergies/Adverse Reactions: Sulfa (Sulfonamide Antibiotics) Allergy (Severe, Verified 12/02/17 10:43) RASH, HIVES latex [Latex] Allergy (Intermediate, Verified 12/02/17 10:43) RASH, SWELLING AT AREA ketorolac tromethamine [From Toradol] Adverse Reaction (Intermediate, Verified 12/02/17 10:43) AGITATED meperidine HCl [From Demerol] Adverse Reaction (Intermediate, Verified 12/02/17 10:43) AGITATED Review of Systems Constitutional: PRESENT: weakness Eyes: PRESENT: visual disturbances Ears: ABSENT: hearing changes Cardiovascular: ABSENT: chest pain, dyspnea on exertion, edema, orthropnea, palpitations Respiratory: ABSENT: cough, hemoptysis Gastrointestinal: ABSENT: abdominal pain, constipation, diarrhea, hematemesis, hematochezia, nausea, vomiting Genitourinary: ABSENT: dysuria, hematuria Musculoskeletal: PRESENT: muscle weakness Integumentary: ABSENT: rash, wounds Neurological: PRESENT: abnormal gait, abnormal movements, lack of coordination, weakness Psychiatric: ABSENT: anxiety, depression, homidical ideation, suicidal ideation Endocrine: ABSENT: cold intolerance, heat intolerance, polydipsia, polyuria Hematologic/Lymphatic: ABSENT: easy bleeding, easy bruising Physical Exam Vital Signs: Temp Pulse Resp BP Pulse Ox 98.5 F 71 16 110/54 L 100 12/03/17 11:54 12/03/17 11:54 12/03/17 11:54 12/03/17 11:54 12/03/17 11:54 Intake & Output 12/02/17 12/03/17 12/04/17 06:59 06:59 06:59 Intake Total 2505 Output Total 2400 Balance 105 General appearance: PRESENT: no acute distress, thin, well-developed Head exam: PRESENT: atraumatic, normocephalic Eye exam: PRESENT: conjunctival injection, EOMI, other - Left eye with erythema scleral Ear exam: PRESENT: normal external ear exam Mouth exam: PRESENT: moist, tongue midline Neck exam: ABSENT: carotid bruit, JVD, lymphadenopathy, thyromegaly Respiratory exam: PRESENT: clear to auscultation vladimir. ABSENT: rales, rhonchi, wheezes Cardiovascular exam: PRESENT: RRR. ABSENT: diastolic murmur, rubs, systolic murmur Pulses: PRESENT: normal dorsalis pedis pul Vascular exam: PRESENT: normal capillary refill GI/Abdominal exam: PRESENT: normal bowel sounds, soft. ABSENT: distended, guarding, mass, organolmegaly, rebound, tenderness Rectal exam: PRESENT: deferred Extremities exam: PRESENT: other - 5/5 pedal strength, forearm strength 4/4 bilateral, bilateral lower ext strength 4/4. ABSENT: calf tenderness, clubbing , pedal edema Musculoskeletal exam: PRESENT: other - 5/5 pedal strength, 4/4 lower ext bilateral, + bilateral upper ext forearm 4/4, + upper ext bilateral 4/4 Neurological exam: PRESENT: alert, awake, oriented to person, oriented to place , oriented to time, oriented to situation, CN II-XII grossly intact. ABSENT: motor sensory deficit Psychiatric exam: PRESENT: appropriate affect, normal mood. ABSENT: homicidal ideation, suicidal ideation Skin exam: PRESENT: dry, intact, warm. ABSENT: cyanosis, rash Results Impressions: Obstetrics Ultrasound 12/02/17 07:00 IMPRESSION: 1. Heterogeneous material in the lower uterine segment in a patient with history of demise. Consistent with in progress. Assessment & Plan - Diagnosis (1) Weakness Is this a current diagnosis for this admission?: Yes Plan: Etiology is unclear: Obtain MRI of the brain to evaluate for degenerative process given the fact that patient has complained of having fever 104F. Could possibly be psychogenic. Will check myoglobin and myositis panel due to patient complaining of muscle aches. Will also restart patient's Fioricet due to the possibility of complex migraine. (2) Intrauterine before 20 weeks of gestation Is this a current diagnosis for this admission?: Yes Plan: S/P D&C: per OB. (3) Posttraumatic stress disorder Is this a current diagnosis for this admission?: Yes Plan: Will restart home medications (4) Seizure disorder Is this a current diagnosis for this admission?: Yes Plan: Will continue home medications (5) DVT prophylaxis Is this a current diagnosis for this admission?: Yes Plan: ambulation - Time Time Spent: 30 to 50 Minutes
[2017-12-03] MEDS ORDERED: BUTALB/ACETAMINOPHEN/CAFFEINE 1 TAB EACH PO ONE (14:45)
[2017-12-03] MEDS ORDERED: ONDANSETRON 4 MG TAB.RAPDIS PO PRN (14:45)
--- NOTE | 2017-12-03 17:58 | RADIOLOGY REPORT (SQ) ---
EXAM DESCRIPTION: MRI HEAD WITHOUT COMPLETED DATE/TIME: 12/03/2017 5:19 pm REASON FOR STUDY: left sided weakness COMPARISON: January 2016 TECHNIQUE: Multiplanar imaging includes non-contrasted T1, T2, FLAIR, and diffusion with ADC map seq uences. Images stored on PACS. LIMITATIONS: None. FINDINGS: ANATOMY: No anomalies. Normal vascular flow voids. Pituitary fossa normal. CSF SPACES: Normal in size and contour. No hemorrhage. CEREBRUM: Sulci and gyri normal in size and contour. Normal white matter signal on FLAIR imaging. No evidence of hemorrhage, mass, or extraaxial fluid collection. POSTERIOR FOSSA: No signal alteration. No hemorrhage. No edema, masses or mass effect. Internal meeta tory canals, cerebello-pontine angles, mastoids normal. DIFFUSION IMAGING: Negative for acute or sub-acute infarction. ORBITS: No masses. Globes normal. PARANASAL SINUSES: No fluid levels. Mucosa normal. OTHER: No other significant finding. IMPRESSION: NORMAL MRI OF THE BRAIN WITHOUT INTRAVENOUS GADOLINIUM CONTRAST. EVIDENCE OF ACUTE STROKE: NO. TECHNICAL DOCUMENTATION: JOB ID: [id number] [employer]- All Rights Reserved Reading location - IP/workstation name: [email or web address]
[2017-12-03] MEDS: CYCLOBENZAPRINE HCL 10 MG TABLET PO SCH ×2 (18:52→19:47)
[2017-12-03 19:59] LABS: ALANINE AMINOTRANSFERASE 28 U/L (9-52); ALBUMIN 2.3 g/dL (3.5-5.0); ALKALINE PHOSPHATASE 79 U/L (38-126); ANION GAP 7 (5-19); ASPARTATE AMINO TRANSFERASE 14 U/L (14-36); BILIRUBIN,DIRECT 0.1 mg/dL (0.0-0.4); BILIRUBIN,TOTAL 0.1 mg/dL (0.2-1.3); BLOOD UREA NITROGEN 10 mg/dL (7-20); CALCIUM 7.5 mg/dL (8.4-10.2); CARBON DIOXIDE 22 mmol/L (22-30); CHLORIDE 105 mmol/L (98-107); GLUCOSE 97 mg/dL (75-110); POTASSIUM 3.9 mmol/L (3.6-5.0); TOTAL PROTEIN 4.9 g/dL (6.3-8.2)
[2017-12-03] MEDS: BUPRENORPHINE HCL 2 MG SUBLINGUAL TABLET SL SCH (21:36)
[2017-12-03] MEDS: GABAPENTIN 300 MG CAPSULE PO SCH (21:47)
[2017-12-03] MEDS ORDERED: (PENDING PHARMACY ID) (Buprenorphine Hcl [Subutex 8 Mg Sublingual Tablet] 1 TAB) SL SCH (22:00)
[2017-12-03] MEDS ORDERED: LAMOTRIGINE 200 MG PO SCH (22:00)
[2017-12-04] MEDS: CIPROFLOXACIN HCL 0.3% OPH SOLN 2.5 ML OS SCH ×3 (00:42→05:24)
[2017-12-04] MEDS: CYCLOBENZAPRINE HCL 10 MG TABLET PO SCH (05:12)
[2017-12-04] MEDS: BUPRENORPHINE HCL 2 MG SUBLINGUAL TABLET SL SCH (05:12)
[2017-12-04] MEDS: GABAPENTIN 300 MG CAPSULE PO SCH (05:12)
[2017-12-04] MEDS: IBUPROFEN 800 MG TABLET PO SCH (05:24)
--- NOTE | 2017-12-04 07:42 | PDOC PROGRESS REPORT ---
Subjective Progress Note for:: 12/04/17 Subjective:: Patient seen this morning who states that she has been able to ambulate independently without assistance. Patient's sister was at bedside and states that her sister is doing much better. Patient was stating that she would like to be able to go home today. Reason For Visit: INTRAUTERINE BEFORE 20 WEEKS Physical Exam Vital Signs: Temp Pulse Resp BP Pulse Ox 98.1 F 56 L 16 90/35 L 97 12/03/17 23:39 12/03/17 23:39 12/03/17 23:39 12/03/17 23:39 12/03/17 23:39 Intake & Output 12/03/17 12/04/17 12/05/17 06:59 06:59 06:59 Intake Total 2505 720 Output Total 2400 Balance 105 720 General appearance: PRESENT: no acute distress, well-developed, well-nourished Head exam: PRESENT: atraumatic, normocephalic Eye exam: PRESENT: conjunctival injection, other - Left eye conjunctival injection Ear exam: PRESENT: normal external ear exam Mouth exam: PRESENT: moist, tongue midline Neck exam: ABSENT: carotid bruit, JVD, lymphadenopathy, thyromegaly Respiratory exam: PRESENT: clear to auscultation vladimir. ABSENT: rales, rhonchi, wheezes Cardiovascular exam: PRESENT: RRR. ABSENT: diastolic murmur, rubs, systolic murmur Pulses: PRESENT: normal dorsalis pedis pul Vascular exam: PRESENT: normal capillary refill GI/Abdominal exam: PRESENT: normal bowel sounds, soft. ABSENT: distended, guarding, mass, organolmegaly, rebound, tenderness Rectal exam: PRESENT: deferred Extremities exam: PRESENT: full ROM. ABSENT: calf tenderness, clubbing, pedal edema Musculoskeletal exam: PRESENT: other - Left side SI joint tenderness to palpation Neurological exam: PRESENT: alert, awake, oriented to person, oriented to place , oriented to time, oriented to situation, CN II-XII grossly intact. ABSENT: motor sensory deficit Psychiatric exam: PRESENT: appropriate affect, normal mood. ABSENT: homicidal ideation, suicidal ideation Skin exam: PRESENT: dry, intact, warm. ABSENT: cyanosis, rash Results Laboratory Results: 12/03/17 19:15 12/03/17 19:15 Sodium 134.0 L Potassium 3.9 Chloride 105 Carbon Dioxide 22 Anion Gap 7 BUN 10 Creatinine 0.61 Est GFR ( Amer) > 60 Est GFR (Non-Af Amer) > 60 Glucose 97 Calcium 7.5 L Total Bilirubin 0.1 L AST 14 ALT 28 Alkaline Phosphatase 79 Total Protein 4.9 L Albumin 2.3 L Impressions: Obstetrics Ultrasound 12/02/17 07:00 IMPRESSION: 1. Heterogeneous material in the lower uterine segment in a patient with history of demise. Consistent with in progress. Head MRI 12/03/17 11:26 IMPRESSION: NORMAL MRI OF THE BRAIN WITHOUT INTRAVENOUS GADOLINIUM CONTRAST. EVIDENCE OF ACUTE STROKE: NO. Assessment & Plan - Diagnosis (1) Weakness Is this a current diagnosis for this admission?: Yes Plan: Etiology is unclear: MRI of brain demonstrated no acute abnormalities. Patient currently able to ambulate without difficulty. Concerned that patient's presentation could have been more psychogenic. Patient is now able to ambulate without assistance. (2) Intrauterine before 20 weeks of gestation Is this a current diagnosis for this admission?: Yes Plan: S/P D&C: per OB. (3) Posttraumatic stress disorder Is this a current diagnosis for this admission?: Yes Plan: Will restart home medications (4) Seizure disorder Is this a current diagnosis for this admission?: Yes Plan: Will continue home medications (5) Sciatica of left side Is this a current diagnosis for this admission?: Yes Plan: Supportive care (6) DVT prophylaxis Is this a current diagnosis for this admission?: Yes Plan: ambulation - Time Time Spent with patient: 15-24 minutes - Okay with discharge home today if no further issues
[2017-12-04 08:38] VITALS: BP 100/49
[2017-12-04] MEDS ORDERED: SERTRALINE HCL 50 MG TABLET PO SCH (10:00)
[2017-12-05] MEDS ORDERED: CIPROFLOXACIN HCL 0.3% OPH SOLN 2.5 ML OS SCH (02:00)
[2017-12-06 22:37] LABS: INFLUENZA A AB (SERUM) CF 1:16 (Neg:<1:8)
[2017-12-07 07:45] LABS: INFLUENZA B AB (SERUM) CF Negative (Neg:<1:8)
== END 2017-12-04 09:45 | disposition home or self-care (01) ==
LOC: ER 06:13 → INTOOBSV 10:27 → EH 10:27 → INOR 12:55 → 2N 15:13
PROVIDERS: ADMIT Obstetrics & Gynecology; ATTEND Obstetrics & Gynecology
PROC: 10D17ZZ Extraction of Products of Conception, Retained, Via Natural or Artificial Opening (ICD-10-PCS; principal; 2017-12-02 13:00)
DX: O99.011 Anemia complicating pregnancy, first trimester (principal); D62 Acute posthemorrhagic anemia; O02.1 Missed abortion; O99.331 Smoking (tobacco) complicating pregnancy, first trimester; F17.200 Nicotine dependence, unspecified, uncomplicated; R27.9 Unspecified lack of coordination; O99.341 Other mental disorders complicating pregnancy, first trimester; F43.10 Post-traumatic stress disorder, unspecified; O26.891 Other specified pregnancy related conditions, first trimester; R53.1 Weakness; M79.1 Myalgia; O99.351 Diseases of the nervous system complicating pregnancy, first trimester; G40.909 Epilepsy, unspecified, not intractable, without status epilepticus; H53.143 Visual discomfort, bilateral; M79.602 Pain in left arm; M79.601 Pain in right arm; M79.605 Pain in left leg; M79.604 Pain in right leg; M54.32 Sciatica, left side; Z86.14 Personal history of Methicillin resistant Staphylococcus aureus infection; Z90.49 Acquired absence of other specified parts of digestive tract; Z3A.12 12 weeks gestation of pregnancy
CPT/HCPCS: 96376; 99285; 96361; 96374; 86235 ×10; 86900; 86901; 36415 ×2; 86710 ×2; 86850; 85025; 80053 ×2; 83874; 88305 ×2; 70551; 76817; 59820; J2250; J3490 ×18; J1100; J3360; J3010; J2590; J2405; J7030; J2704; J0131; J0571 ×2; 1965